=== PATIENT | female | born 1985 | race American Indian/Alaskan Native ===

== ENCOUNTER 2021-01-29 22:03 | Emergency (ER) | payer SELFPAY ==
[2021-01-29 23:55] LABS: Basophils # (Auto) 0.1 K/mm3 (0.0-0.1); Eosinophils # (Auto) 0.1 K/mm3 (0.0-0.4); Eosinophils % (Auto) 1.9 % (0.0-4.3); Hematocrit 38.1 % (30.3-42.9); Hemoglobin 12.8 gm/dl (10.1-14.3); Lymphocytes # (Auto) 2.9 K/mm3 (1.2-5.4); Lymphocytes % (Auto) 37.1 % (13.4-35.0); Mean Corpuscular HGB Conc 34 % (30-34); Mean Corpuscular Volume 91 fl (79-97); Monocytes # (Auto) 0.7 K/mm3 (0.0-0.8); Monocytes % (Auto) 8.8 % (0.0-7.3); Platelet Count 231 K/mm3 (140-440); Red Blood Count 4.18 M/mm3 (3.65-5.03); Red Cell Distribution Width 14.7 % (13.2-15.2)
--- NOTE | 2021-01-30 00:49 | XRay Report ---
CHEST PA AND LATERAL VIEWS INDICATION: chestpain. COMPARISON: None FINDINGS: Support devices: None Heart: Normal Lungs/Pleura: No acute pulmonary or pleural findings. IMPRESSION: 1. No significant abnormality. Signer Name: Lee Hicks MD Signed: 01/30/2021 12:45 AM Workstation Name: [id number]
[2021-01-30 01:01] LABS: Alanine Aminotransferase 16 units/L (7-56); Albumin 4.5 g/dL (3.9-5); Blood Urea Nitrogen 8 mg/dL (7-17); Calcium 8.8 mg/dL (8.4-10.2); Hemolysis Index 3
[2021-01-30 01:12] LABS: BUN/Creatinine Ratio 13
--- NOTE | 2021-01-30 01:50 | Emergency Department Report ---
ED Chest Pain HPI - General Chief Complaint: Chest Pain Stated Complaint: CHEST PAIN PUI?: No Time Seen by Provider: 01/30/21 01:31 Source: patient Mode of arrival: Ambulatory Limitations: No Limitations - History of Present Illness Initial Comments: Chief complaint: "I think this in the muscle." HPI: This is a 35-year-old female with no significant past medical history who presents with chest soreness bilaterally since this morning. Hurts when she moves bends over. Hurts when she laughs coughs. Feels like a sore achiness mostly with movement. She did not take any medication to treat. She feels that when she takes a deep breath her chest chest closing in. She does not take oral contraceptives. She denies leg pain. No family history of clots. No recent travel. She does lift at work. She is currently taking antibiotics and pain medication for dental infection. She has only mild pain with movement. No pain at rest. MD Complaint: chest pain -: Gradual, This morning Onset: during rest Pain Location: left chest, right chest Severity: mild Severity scale (0 -10): 4 Quality: aching Consistency: now resolved Improves With: rest Worsens With: palpation, movement Treatments Prior to Arrival: none - Related Data Previous Rx's Medication Instructions Recorded Last Taken Type Ibuprofen [Motrin 400 MG tab] 400 mg PO TID 5 Days #15 tablet 01/30/21 Unknown Rx Allergies Allergy/AdvReac Type Severity Reaction Status Date / Time No Known Allergies Allergy Unverified 01/29/21 23:09 Heart Score - HEART Score History: Slightly suspicious EKG: Normal Age: < 45 Risk factors: No known risk factors Troponin: < normal limit HEART Score: 0 ED Review of Systems ROS: Stated complaint: CHEST PAIN Other details as noted in HPI Comment: All other systems reviewed and negative Constitutional: denies: fever, malaise Respiratory: denies: cough, shortness of breath Cardiovascular: chest pain Gastrointestinal: denies: abdominal pain, nausea, vomiting ED Past Medical Hx - Past Medical History Previous Medical History?: No - Surgical History Past Surgical History?: Yes Additional Surgical History: . Hernia repair - Social History Smoking Status: Never Smoker Substance Use Type: None - Medications Home Medications: Home Medications Medication Instructions Recorded Confirmed Last Taken Type Ibuprofen [Motrin 400 MG tab] 400 mg PO TID 5 Days #15 tablet 01/30/21 Unknown Rx ED Physical Exam - General Limitations: No Limitations General appearance: alert, in no apparent distress, other (Pleasant appears comfortable no acute distress) - Head Head exam: Present: atraumatic, normocephalic - Eye Eye exam: Present: normal appearance - ENT ENT exam: Present: mucous membranes moist - Neck Neck exam: Present: normal inspection, full ROM - Respiratory Respiratory exam: Present: normal lung sounds bilaterally. Absent: respiratory distress, wheezes, rales, rhonchi - Cardiovascular Cardiovascular Exam: Present: regular rate, normal rhythm, normal heart sounds. Absent: systolic murmur, diastolic murmur, rubs, gallop - GI/Abdominal GI/Abdominal exam: Present: soft, normal bowel sounds. Absent: distended, tenderness, guarding, rebound - Extremities Exam Extremities exam: Present: normal inspection - Neurological Exam Neurological exam: Present: alert, oriented X3 - Psychiatric Psychiatric exam: Present: normal affect, normal mood - Skin Skin exam: Present: warm, dry, intact, normal color. Absent: rash ED Course Vital Signs 01/29/21 23:03 Temperature 98.5 F Pulse Rate 83 Respiratory 18 Rate Blood Pressure 132/91 O2 Sat by Pulse 100 Oximetry ED Medical Decision Making - Lab Data Result diagrams: 01/29/21 23:31 01/29/21 23:31 Laboratory Results - last 24 hr 01/29/21 01/29/21 01/29/21 23:31 23:31 23:31 WBC 7.7 RBC 4.18 Hgb 12.8 Hct 38.1 MCV 91 MCH 31 MCHC 34 RDW 14.7 Plt Count 231 Lymph % (Auto) 37.1 H [place] % (Auto) 8.8 H Eos % (Auto) 1.9 Baso % (Auto) 1.0 Lymph # (Auto) 2.9 [place] # (Auto) 0.7 Eos # (Auto) 0.1 Baso # (Auto) 0.1 Seg Neutrophils % 51.2 Seg Neutrophils # 3.9 Sodium 140 Potassium 3.9 Chloride 104.5 Carbon Dioxide 27 Anion Gap 12 BUN 8 Creatinine 0.6 Estimated GFR > 60 BUN/Creatinine Ratio 13 Glucose 83 Calcium 8.8 Total Bilirubin 0.30 AST 16 ALT 16 Alkaline Phosphatase 53 Total Protein 7.3 Albumin 4.5 Albumin/Globulin Ratio 1.6 HCG, Qual Negative - EKG Data -: EKG Interpreted by Me EKG shows normal: sinus rhythm, axis, intervals, QRS complexes, ST-T waves Rate: normal - EKG Data Interpretation: normal EKG 01/30/21 01:48 EKG obtained 2209 EKG interpreted by me Normal sinus rhythm normal rate normal axis normal intervals no ST elevation no ST-T signs of ischemia normal EKG - Radiology Data Radiology results: report reviewed Chest PA lateral: No significant abnormality - Medical Decision Making Chest wall pain: PERC negative for PE, no indication of ACS. No evidence of infiltrate or pneumothorax. Patient prescribed ibuprofen. First dose given in emergency department. She understands to return to emergency department symptoms worsen. Critical care attestation.: If time is entered above; I have spent that time in minutes in the direct care of this critically ill patient, excluding procedure time. ED Disposition Clinical Impression: Chest wall pain Disposition: DC-01 TO HOME OR SELFCARE Is pt being admited?: No Does the pt Need Aspirin: No Condition: Stable Instructions: Chest Wall Pain, [id number] Prescriptions: Ibuprofen [Motrin 400 MG tab] 400 mg PO TID 5 Days #15 tablet Referrals: PRIMARY CARE, [Primary Care Provider] - 3-5 Days Forms: Work/School Release Form(ED)
[2021-01-30] MEDS ORDERED: IBUPROFEN 800 MG TAB PO ONE (01:53)
[2021-01-30 02:01] VITALS: BP 127/86
--- NOTE | 2021-01-31 11:10 | Electrocardiograph Report ---
[facility] Test Date: 2021-01-29 Test Time: 22:09:34 Pat Name: EBONY KULKARNI Department: Room: Gender: F Appeals Board Referee: JANE : 1985 Requested By: ED DOC Order Number: [id number] Reading MD: Car Del Angel Measurements Intervals [place] Rate: 81 P: 61 NC: 132 QRS: 45 QRSD: 91 T: 29 QT: 362 QTc: 422 Interpretive Statements Sinus rhythm No previous ECG available for comparison Electronically Signed On 01-31-2021 8:10:06 PDT by Car Del Angel
== END 2021-01-30 02:00 | disposition home or self-care (01) ==
LOC: ED 22:03
DX: R07.89 Other chest pain (principal); Z79.899 Other long term (current) drug therapy
CPT/HCPCS: 36415; 71046; 80053; 84703; 85025; 93005

== ENCOUNTER 2021-09-11 17:01 | Emergency (ER) | payer SELFPAY ==
[2021-09-11] MEDS ORDERED: KETOROLAC 30 MG/1 ML INJ IV ONE (17:23)
[2021-09-11] MEDS ORDERED: CYCLOBENZAPRINE 10 MG TAB PO ONE (17:23)
[2021-09-11] MEDS ORDERED: SODIUM CHLORIDE 0.9% 1000 ML 1,000 ML IV ONE (17:23)
--- NOTE | 2021-09-11 17:27 | Emergency Department Report ---
ED Chest Pain HPI - General Chief Complaint: Chest Pain Stated Complaint: CHEST PAIN Time Seen by Provider: 09/11/21 17:15 Source: patient Mode of arrival: Ambulatory Limitations: No Limitations - History of Present Illness Initial Comments: 36-year-old -[place] female presents to the emergency department with a 2-day history of generalized chest pain that has now started to radiate down her right arm and towards her posterior right shoulder since earlier today. The patient took a muscle relaxer last night for her symptoms with only some tr ansient and/or mild relief. She denies any past medical history. She denies any family history of early heart attack. No recent travel or sick contacts at home. She denies any tobacco or illicit drug use. Currently the pain is 8 out of 10 in intensity and worsens with breathing and certain movements of her torso. She is not vaccinated against COVID-19 but does not have any known exposure to anyone positive for COVID-19. - Related Data Previous Rx's Medication Instructions Recorded Last Taken Type Ibuprofen [Motrin 400 MG tab] 400 mg PO TID 5 Days #15 tablet 01/30/21 Unknown Rx Cyclobenzaprine [Flexeril] 10 mg PO TID PRN #12 tablet 09/11/21 Unknown Rx Ibuprofen [Motrin 600 MG tab] 600 mg PO Q8H PRN #20 tablet 09/11/21 Unknown Rx Allergies Allergy/AdvReac Type Severity Reaction Status Date / Time No Known Allergies Allergy Unverified 01/29/21 23:09 Heart Score - HEART Score History: Slightly suspicious EKG: Normal Age: < 45 Risk factors: No known risk factors Troponin: < normal limit HEART Score: 0 - EKG Read Time Time EKG Completed: 17:07 EKG Read Time: 17:16 ED Review of Systems ROS: Stated complaint: CHEST PAIN Other details as noted in HPI Comment: All other systems reviewed and negative Constitutional: denies: chills, fever Eyes: denies: eye pain, vision change ENT: denies: ear pain, throat pain Respiratory: denies: cough, shortness of breath Cardiovascular: chest pain. denies: palpitations Gastrointestinal: denies: abdominal pain, vomiting Genitourinary: denies: dysuria, discharge Musculoskeletal: arthralgia, myalgia Skin: denies: rash, lesions Neurological: denies: headache, weakness ED Past Medical Hx - Past Medical History Previous Medical History?: No - Surgical History Past Surgical History?: Yes Additional Surgical History: . Hernia repair - Social History Smoking Status: Never Smoker Substance Use Type: None - Medications Home Medications: Home Medications Medication Instructions Recorded Confirmed Last Taken Type Ibuprofen [Motrin 400 MG tab] 400 mg PO TID 5 Days #15 tablet 01/30/21 Unknown Rx Cyclobenzaprine [Flexeril] 10 mg PO TID PRN #12 tablet 09/11/21 Unknown Rx Ibuprofen [Motrin 600 MG tab] 600 mg PO Q8H PRN #20 tablet 09/11/21 Unknown Rx ED Physical Exam - General Limitations: No Limitations - Other Other exam information: GENERAL: The patient is well-developed well-nourished. HENT: Normocephalic. Atraumatic. Patient has moist mucous membranes. EYES: Extraocular motions are intact. NECK: Supple. Trachea is midline. CHEST/LUNGS: Clear to auscultation. There is no respiratory distress noted. There is reproducible chest wall tenderness to palpation without crepitus or deformity. HEART/CARDIOVASCULAR: Regular. There is no tachycardia. There is no murmur. ABDOMEN: Abdomen is soft, nontender. Patient has normal bowel sounds. SKIN: Skin is warm and dry. NEURO: The patient is awake, alert, and oriented. The patient is cooperative. The patient has no focal neurologic deficits. Normal speech. MUSCULOSKELETAL: There is no tenderness or deformity. There is no limitation range of motion. ED Course Vital Signs 09/11/21 09/11/21 09/11/21 17:14 17:45 19:55 Temperature 98.4 F Pulse Rate 75 76 Respiratory 16 16 18 Rate Blood Pressure 129/74 Blood Pressure 124/82 [Left] O2 Sat by Pulse 100 99 Oximetry RICK score - Rick Score Age > 65: (0) No Aspirin use within the Past 7 Days: (0) No 3 or more CAD Risk Factors: (0) No 2 or more Angina events in past 24 hrs: (1) Yes Known CAD with more than 50% Stenosis: (0) No Elevated Cardiac Markers: (0) No ST Deviation Greater than 0.5mm: (0) No RICK Score: 1 ED Medical Decision Making - Lab Data Result diagrams: 09/11/21 17:39 09/11/21 17:39 Lab Results 09/11/21 09/11/21 Range/Units 17:39 17:39 WBC 8.0 (4.5-11.0) K/mm3 RBC 4.34 (3.65-5.03) M/mm3 Hgb 13.1 (10.1-14.3) gm/dl Hct 39.7 (30.3-42.9) % MCV 91 (79-97) fl MCH 30 (28-32) pg MCHC 33 (30-34) % RDW 16.7 H (13.2-15.2) % Plt Count 266 (140-440) K/mm3 Lymph % (Auto) 26.7 (13.4-35.0) % [place] % (Auto) 6.9 (0.0-7.3) % Eos % (Auto) 1.3 (0.0-4.3) % Baso % (Auto) 2.0 H (0.0-1.8) % Lymph # (Auto) 2.1 (1.2-5.4) K/mm3 [place] # (Auto) 0.6 (0.0-0.8) K/mm3 Eos # (Auto) 0.1 (0.0-0.4) K/mm3 Baso # (Auto) 0.2 H (0.0-0.1) K/mm3 Seg Neutrophils % 63.1 (40.0-70.0) % Seg Neutrophils # 5.1 (1.8-7.7) K/mm3 Sodium 137 (137-145) mmol/L Potassium 5.9 H (3.6-5.0) mmol/L Chloride 103.5 (98-107) mmol/L Carbon Dioxide 23 (22-30) mmol/L Anion Gap 16 mmol/L BUN 12 (7-17) mg/dL Creatinine 0.6 (0.6-1.2) mg/dL Estimated GFR > 60 ml/min BUN/Creatinine Ratio 20 % Glucose 70 (65-100) mg/dL Calcium 9.0 (8.4-10.2) mg/dL Troponin T < 0.010 (0.00-0.029) ng/mL - EKG Data -: EKG Interpreted by Ri EKG shows normal: sinus rhythm, axis, intervals, QRS complexes, ST-T waves Rate: normal - EKG Data When compared to previous EKG there are: previous EKG unavailable Interpretation: normal EKG - Radiology Data Radiology results: image reviewed interpreted by me: Chest x-ray does not show any acute process. There are no pleural effusions, obvious pneumonia and there is no pneumothorax. No widened mediastinum. - Medical Decision Making This patient presents with a 2-day history of generalized chest discomfort that has recently started to radiate down her right arm and to the posterior right shoulder. On examination there is reproducible chest wall tenderness to palpation without crepitus or deformity. Heart and lung sounds are normal to auscultation and the patient does not appear in any respiratory or acute distress. EKG does not have any morphology consistent with ST elevation myocardial infarction or any dysrhythmia. Chest x-ray does not show any pneumonia, pleural effusions, pneumothorax, widened mediastinum, or any other acute process. Patient's labs have been unremarkable including CBC, metabolic panel except for hyperkalemia and a negative troponin. Patient was given a dose of Kayexalate and albuterol to treat the hyperkalemia with potassium level of 5.9. She understands the importance of following up with her primary care physician in the next few days for a repeat potassium level. She will receive information about potassium rich foods that she knows which to avoid. She was given a dose of Toradol and Flexeril for her chest wall pain with some improvement. She is low on the heart and RICK score. For all these reasons she appears safe for discharge home at this time. Her contact information has been sent over to the [facility], and someone from their office should be contacting her shortly for close outpatient follow-up as part of this [facility] low risk chest pain protocol. Critical Care Time: No Critical care attestation.: If time is entered above; I have spent that time in minutes in the direct care of this critically ill patient, excluding procedure time. ED Disposition Clinical Impression: Atypical chest pain, Chest wall pain, Hyperkalemia Disposition: 01 HOME / SELF CARE / HOMELESS Is pt being admited?: No Condition: Stable Instructions: Nonspecific Chest Pain, Adult, Hyperkalemia, Potassium Content of Foods, Chest Wall Pain Additional Instructions: Please follow-up with your primary care physician in the next 1 to 2 days for a repeat potassium level. Your potassium level today was at 5.9. You were given Kayexalate and some albuterol in order to decrease your potassium level. I have given you some information about potassium rich foods so you can avoid them for at least a few days. I have sent your contact information over to the [facility], and someone from their office should be contacting you shortly for close outpatient follow-up. Just in case, I am giving you a referral for one of their senior mechanical estimator, Dr. Jenkins. You have been prescribed a medication that is sedating and therefore should not be taken prior to driving, working, and responsible for children and in no way should be mixed with alcohol of any quantity. Return to the emergency department with any worsening of your symptoms, new or c oncerning symptoms not addressed during this current emergency department visit, or with any acute distress. Prescriptions: Cyclobenzaprine [Flexeril] 10 mg PO TID PRN #12 tablet PRN Reason: Muscle Spasm Ibuprofen [Motrin 600 MG tab] 600 mg PO Q8H PRN #20 tablet PRN Reason: Pain Referrals: PRIMARY CAREMD [Primary Care Provider] - 2-3 Days KALPANA JENKINS MD [Staff Physician] - 3-5 Days Time of Disposition: 19:47
[2021-09-11 18:08] LABS: Basophils # (Auto) 0.2 K/mm3 (0.0-0.1); Eosinophils # (Auto) 0.1 K/mm3 (0.0-0.4); Eosinophils % (Auto) 1.3 % (0.0-4.3); Hematocrit 39.7 % (30.3-42.9); Hemoglobin 13.1 gm/dl (10.1-14.3); Lymphocytes # (Auto) 2.1 K/mm3 (1.2-5.4); Lymphocytes % (Auto) 26.7 % (13.4-35.0); Mean Corpuscular HGB Conc 33 % (30-34); Mean Corpuscular Volume 91 fl (79-97); Monocytes # (Auto) 0.6 K/mm3 (0.0-0.8); Monocytes % (Auto) 6.9 % (0.0-7.3); Platelet Count 266 K/mm3 (140-440); Red Blood Count 4.34 M/mm3 (3.65-5.03); Red Cell Distribution Width 16.7 % (13.2-15.2)
[2021-09-11 18:26] LABS: Blood Urea Nitrogen 12 mg/dL (7-17); Hemolysis Index 236
--- NOTE | 2021-09-11 18:28 | XRay Report ---
CHEST 2 VIEWS INDICATION / CLINICAL INFORMATION: CP. COMPARISON: 01/30/2021 FINDINGS: SUPPORT DEVICES: None. HEART / MEDIASTINUM: No significant abnormality. LUNGS / PLEURA: No significant pulmonary or pleural abnormality. No pneumothorax. ADDITIONAL FINDINGS: No significant additional findings. IMPRESSION: 1. No acute findings. Signer Name: Forrest Wade DO Signed: 09/11/2021 6:24 PM Workstation Name: [id number]
[2021-09-11 18:29] LABS: BUN/Creatinine Ratio 20
[2021-09-11] MEDS ORDERED: SODIUM POLYSTYRENE 15 GM/60 ML ORAL LIQD PO ONE (18:35)
[2021-09-11] MEDS ORDERED: ALBUTEROL 2.5 MG/3 ML NEBU IH ONE (18:58)
[2021-09-11 19:57] VITALS: BP 124/82
--- NOTE | 2021-09-15 10:03 | Electrocardiograph Report ---
[facility] Test Date: 2021-09-11 Test Time: 17:07:14 Pat Name: EBONY KULKARNI Department: Room: Gender: F Dental Professional: ROSA CARRENOB: 1985 Requested By: NICOLE COLON Order Number: [id number] Reading MD: Bryan Quintana Measurements Intervals [place] Rate: 71 P: 69 [place]: 107 QRS: 50 QRSD: 86 T: 38 QT: 364 QTc: 396 Interpretive Statements Sinus rhythm with borderline short [place] interval noted. Compared to ECG 01/29/2021 22:09:34 No significant changes Electronically Signed On 09-15-2021 10:03:21 EST by Bryan Quintana
== END 2021-09-11 19:59 | disposition home or self-care (01) ==
LOC: ED 17:01
DX: R07.89 Other chest pain (principal); E87.6 Hypokalemia; Z98.890 Other specified postprocedural states; Z79.899 Other long term (current) drug therapy
CPT/HCPCS: 36415; 71046; 80048; 84484; 85025; 93005; 94640; 96361; 96374; 99284; J1885; J7030

== ENCOUNTER 2022-01-20 09:20 | Emergency (ER) | payer MEDICAID ==
[2022-01-20 09:28] VITALS: BP 131/85
[2022-01-20] MEDS ORDERED: oxyCODONE /ACETAMINOPHEN 5-325MG TAB PO ONE (10:22)
--- NOTE | 2022-01-20 10:59 | XRay Report ---
RIGHT WRIST 4 VIEWS INDICATION / CLINICAL INFORMATION: Right wrist pain after injury COMPARISON: None available. FINDINGS: BONES / JOINT(S): No acute fracture or subluxation. No significant arthritis. SOFT TISSUES: No significant abnormality. ADDITIONAL FINDINGS: None. IMPRESSION: No acute findings. Signer Name: Xiang Hodges MD Signed: 01/20/2022 10:54 AM Workstation Name: [employer]
--- NOTE | 2022-01-20 11:07 | Emergency Department Report ---
Upper Extremity - HPI Chief Complaint: Extremity Injury, Upper Stated Complaint: RT WRIST HAND PAIN Time Seen by Provider: 01/20/22 10:01 Upper Extremity: Right Wrist, Right Hand Occurred When: 3 Days Mechanism: Other (Wrestling with kids) Severity: severe Symptoms: Yes Pain with Movement, Yes Limited Range of Movement, Yes Swelling, No Deformity, No Numbness, No Weakness, No Bruising/Ecchymosis, No Laceration or Abrasion Other History: 36-year-old black female with past medical history of migraines presents to the emergency department for evaluation of right wrist and hand pain that she injured while wrestling with her kids 3 days ago. She states that since then she has had persistent pain, decreased range of motion, and some swelling to the area. She denies any numbness or tingling. ED Review of Systems ROS: Stated complaint: RT WRIST HAND PAIN Other details as noted in HPI Comment: All other systems reviewed and negative Constitutional: denies: chills, fever Eyes: denies: eye pain, eye discharge ENT: denies: ear pain, throat pain, dental pain, congestion Respiratory: denies: cough, orthopnea, shortness of breath, SOB with exertion, S OB at rest Cardiovascular: denies: chest pain, palpitations, dyspnea on exertion, orthopnea, edema, syncope, paroxysmal nocturnal dyspnea Endocrine: no symptoms reported Gastrointestinal: denies: abdominal pain, nausea, vomiting, diarrhea, hematemesis, melena, hematochezia Genitourinary: denies: urgency, dysuria, frequency, hematuria, discharge Musculoskeletal: denies: back pain Skin: denies: rash, lesions Neurological: denies: headache, weakness, numbness, paresthesias Psychiatric: denies: anxiety, depression Hematological/Lymphatic: denies: easy bleeding, easy bruising ED Past Medical Hx - Surgical History Additional Surgical History: . Hernia repair - Social History Smoking Status: Never Smoker Substance Use Type: None - Medications Home Medications: Home Medications Medication Instructions Recorded Confirmed Last Taken Type Ibuprofen [Motrin 400 MG tab] 400 mg PO TID 5 Days #15 tablet 01/30/21 Unknown Rx Cyclobenzaprine [Flexeril] 10 mg PO TID PRN #12 tablet 09/11/21 Unknown Rx Ibuprofen [Motrin 600 MG tab] 600 mg PO Q8H PRN #20 tablet 09/11/21 Unknown Rx Naproxen [Naprosyn] 500 mg PO BID #14 tab 01/20/22 Unknown Rx Upper Extremity Exam - Exam General: Vital signs noted. No distress. Alert and acting appropriately. Head and Torso: Yes HEENT Abnormality, No Neck Tenderness, No Chest/Lungs Abnormality, No Abdominal Tenderness, No Back Tenderness Shoulder Exam: No Shoulder Tenderness, No Clavicle Tenderness, No Normal Range of Motion in Shoulder, No Shoulder Deformity, No AC Joint Tenderness Arm Exam: No Arm/Humerus Tenderness, No Arm Deformity Elbow: Yes Normal Range of Motion in Elbow, No Elbow Tenderness, No Elbow Deformity Forearm: No Forearm Tenderness, No Forearm Deformity, No Pain with Pronation, No Pain with Supination Wrist: Yes Wrist Tenderness (Right wrist), No Normal ROM in Wrist, No Wrist Deformity, No Snuffbox Tenderness, No Pain with Axial Thumb Compression Hand: Yes Hand Tenderness, Yes Normal ROM in Digit(s), No Hand Deformity, No Digit Tenderness, No Digit(s) Deformity, No Tendon Dysfunction CMS Exam: Yes Normal Distal Pulses, Yes Normal Capillary Refill, Yes Normal Distal Sensation, No Broken Skin ED Course Vital Signs 01/20/22 09:27 Temperature 98.4 F Pulse Rate 73 Respiratory 17 Rate Blood Pressure 131/85 O2 Sat by Pulse 100 Oximetry ED Medical Decision Making - Radiology Data Radiology results: report reviewed, image reviewed Right wrist x-ray IMPRESSION: No acute findings. - Medical Decision Making 36-year-old black female with past medical history of migraines presents to the emergency department for evaluation of right wrist and hand pain that she injured while wrestling with her kids 3 days ago. She states that since then she has had persistent pain, decreased range of motion, and some swelling to the area. She denies any numbness or tingling. Right wrist x-ray without any acute abnormalities noted. Patient will be treated with Des wrap, rest, ice, and 1 week of anti-inflammatories. She was advised that if she has no improvement or worsening symptoms to follow-up here or with orthopedics for repeat x-ray. She verbalized understanding of and agreement with plan of care. Critical care attestation.: If time is entered above; I have spent that time in minutes in the direct care of this critically ill patient, excluding procedure time. ED Disposition Clinical Impression: Wrist pain, right Disposition: 01 HOME / SELF CARE / HOMELESS Is pt being admited?: No Does the pt Need Aspirin: No Condition: Stable Instructions: How to Use Cold Therapy, [id number], Musculoskeletal Pain, Wrist Pain, Adult, [id number] Additional Instructions: Take medications as prescribed. Follow-up with primary care provider as needed. Prescriptions: Naproxen [Naprosyn] 500 mg PO BID #14 tab Referrals: MAIKOL ATKINS MD [Staff Physician] - 3-5 Days Forms: Work/School Release Form(ED)
== END 2022-01-20 11:55 | disposition home or self-care (01) ==
LOC: ED 09:20
DX: M25.531 Pain in right wrist (principal)
CPT/HCPCS: 99283

== ENCOUNTER 2022-01-29 16:51 | Emergency (ER) | payer MEDICAID ==
[2022-01-29 17:21] VITALS: BP 145/85
[2022-01-29 18:23] LABS: Basophils # (Auto) 0.1 K/mm3 (0.0-0.1); Basophils % (Auto) 0.8 % (0.0-1.8); Eosinophils # (Auto) 0.2 K/mm3 (0.0-0.4); Eosinophils % (Auto) 2.8 % (0.0-4.3); Hematocrit 39.8 % (30.3-42.9); Lymphocytes # (Auto) 2.4 K/mm3 (1.2-5.4); Lymphocytes % (Auto) 28.9 % (13.4-35.0); Mean Corpuscular HGB Conc 33 % (30-34); Mean Corpuscular Volume 93 fl (79-97); Monocytes # (Auto) 0.7 K/mm3 (0.0-0.8); Monocytes % (Auto) 8.5 % (0.0-7.3); Platelet Count 224 K/mm3 (140-440); Red Blood Count 4.27 M/mm3 (3.65-5.03); Red Cell Distribution Width 14.1 % (13.2-15.2)
[2022-01-29 18:39] LABS: Alanine Aminotransferase 18 units/L (7-56); Albumin 4.3 g/dL (3.9-5); BUN/Creatinine Ratio 15; Blood Urea Nitrogen 9 mg/dL (7-17); Calcium 9.6 mg/dL (8.4-10.2); Hemolysis Index 7
[2022-01-29 19:00] LABS: Bilirubin,Urine NEG (Negative); Blood,Urine NEG (Negative); Color,Urine Straw (Yellow); Mucus,Urine FEW /HPF; Protein,Urine <15 mg/dL mg/dL (Negative); RBC,Urine < 1.0 /HPF (0.0-6.0); Urobilinogen,Urine < 2.0 mg/dL (<2.0)
--- NOTE | 2022-01-29 19:03 | Emergency Department Report ---
ED Abdominal Pain HPI - General Chief Complaint: Abdominal Pain Stated Complaint: LOWER RT ABD PAIN PUI?: No Time Seen by Provider: 01/29/22 18:51 Source: patient Mode of arrival: Ambulatory Limitations: No Limitations - History of Present Illness Initial Comments: Chief complaint: Abdominal pain HPI: This is a healthy 36-year-old female without significant past medical history presents with right lower quadrant severe abdominal pain. 8 out of 10 dull pain worse with movement denies nausea vomiting denies vaginal discharge positive frequent urination. No diarrhea. No fever. History of tubal ligation. MD Complaint: abdominal pain -: Gradual, days(s) (3 days) Location: RLQ Radiation: none Severity: severe Severity scale (0 -10): 8 Quality: aching, dull Consistency: constant Improves With: nothing Worsens With: movement Associated Symptoms: other (Frequent urination) - Related Data Previous Rx's Medication Instructions Recorded Last Taken Type Ibuprofen [Motrin 400 MG tab] 400 mg PO TID 5 Days #15 tablet 01/30/21 Unknown Rx Cyclobenzaprine [Flexeril] 10 mg PO TID PRN #12 tablet 09/11/21 Unknown Rx Ibuprofen [Motrin 600 MG tab] 600 mg PO Q8H PRN #20 tablet 09/11/21 Unknown Rx Naproxen [Naprosyn] 500 mg PO BID #14 tab 01/20/22 Unknown Rx HYDROcodone/APAP 5-325 [[place] 1 each PO Q6HR PRN #10 tablet 01/29/22 Unknown Rx 5/325] Ibuprofen [Motrin 800 MG tab] 800 mg PO Q8HR PRN #15 tablet 01/29/22 Unknown Rx Allergies Allergy/AdvReac Type Severity Reaction Status Date / Time No Known Allergies Allergy Unverified 01/29/21 23:09 ED Review of Systems ROS: Stated complaint: LOWER RT ABD PAIN Other details as noted in HPI Comment: All other systems reviewed and negative Constitutional: denies: chills, fever, malaise Respiratory: denies: cough, orthopnea, shortness of breath Cardiovascular: denies: chest pain Gastrointestinal: abdominal pain. denies: nausea, vomiting Genitourinary: frequency Musculoskeletal: denies: back pain ED Past Medical Hx - Past Medical History Previous Medical History?: No - Surgical History Past Surgical History?: Yes Additional Surgical History: . Hernia repair. Tubal ligation - Social History Smoking Status: Never Smoker Substance Use Type: Prescribed - Medications Home Medications: Home Medications Medication Instructions Recorded Confirmed Last Taken Type Ibuprofen [Motrin 400 MG tab] 400 mg PO TID 5 Days #15 tablet 01/30/21 Unknown Rx Cyclobenzaprine [Flexeril] 10 mg PO TID PRN #12 tablet 09/11/21 Unknown Rx Ibuprofen [Motrin 600 MG tab] 600 mg PO Q8H PRN #20 tablet 09/11/21 Unknown Rx Naproxen [Naprosyn] 500 mg PO BID #14 tab 01/20/22 Unknown Rx HYDROcodone/APAP 5-325 [[place] 1 each PO Q6HR PRN #10 tablet 01/29/22 Unknown Rx 5/325] Ibuprofen [Motrin 800 MG tab] 800 mg PO Q8HR PRN #15 tablet 01/29/22 Unknown Rx ED Physical Exam - General Limitations: No Limitations General appearance: alert, in no apparent distress - Head Head exam: Present: atraumatic, normocephalic - Eye Eye exam: Present: normal appearance - ENT ENT exam: Present: mucous membranes moist - Neck Neck exam: Present: normal inspection, full ROM - Respiratory Respiratory exam: Present: normal lung sounds bilaterally. Absent: respiratory distress, wheezes, rales, rhonchi - Cardiovascular Cardiovascular Exam: Present: regular rate, normal rhythm, normal heart sounds. Absent: systolic murmur, diastolic murmur, rubs, gallop - GI/Abdominal GI/Abdominal exam: Present: soft, tenderness, guarding, normal bowel sounds. Absent: distended, rebound - Extremities Exam Extremities exam: Present: normal inspection - Back Exam Back exam: Present: normal inspection - Neurological Exam Neurological exam: Present: alert, oriented X3 - Psychiatric Psychiatric exam: Present: normal affect, normal mood - Skin Skin exam: Present: warm, dry, intact, normal color. Absent: rash ED Course Vital Signs 01/29/22 17:16 Temperature 98.9 F Pulse Rate 76 Respiratory 20 Rate Blood Pressure 145/85 O2 Sat by Pulse 100 Oximetry ED Medical Decision Making - Lab Data Result diagrams: 01/29/22 17:53 01/29/22 17:53 - Radiology Data Radiology results: report reviewed Patient Name: EBONY KULKARNI Gender: Female Date of : 1985 Referring Provider: AMAYA FRAIRE Organization: [facility] Accession Number: [id number] Requested Date: January 29, 2022 19:00 Report Status: Final Requested Procedure: 1 Procedure Description: CT abdomen pelvis w con Modality: CT Findings Reporting MD: John Michaels Dictation Time: January 29, 2022 19:25 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 COMPARISON: None. TECHNIQUE: CT images of the abdomen and pelvis were obtained following administration of intravenous contrast. All CT scans at this location are performed using CT dose reduction for ALARA by means of automated exposure control. CONTRAST: 100 ml of intravenous contrast administered. FINDINGS: Lungs/bones: Lung bases are clear Abdomen/pelvis: Fatty infiltration the liver. Spleen, adrenal glands, pancreas, gallbladder and upper GI tract appear normal. Bilateral kidneys appear normal. The appendix appears normal. There is a large right adnex al cyst measuring 5.2 x 3.6 cm. Free fluid is seen in the pelvis. Fluid in the endometrium. No acute bone findings IMPRESSION: 1. Large right adnexal cyst measures 5.2 x 3.6 cm. Follow-up recommended. 2. Trace free fluid in the pelvis. 3. Appendix appears normal. Signer Name: John Michaels MD Signed: 01/29/2022 7:25 PM Workstation Name: [id number] - Medical Decision Making Right ovarian cyst normal appendix, CBC was normal chemistry normal imaging analysis without evidence of infection. Prescribed ibuprofen [place] for pain. Referred to [facility] on-call Critical care attestation.: If time is entered above; I have spent that time in minutes in the direct care of this critically ill patient, excluding procedure time. ED Disposition Clinical Impression: Right ovarian cyst Disposition: HOME / SELF CARE / HOMELESS Is pt being admited?: No Does the pt Need Aspirin: No Condition: Stable Instructions: Abdominal Pain (ED), Ovarian Cyst, [id number] Prescriptions: Ibuprofen [Motrin 800 MG tab] 800 mg PO Q8HR PRN #15 tablet PRN Reason: Pain , Severe (7-10) HYDROcodone/APAP 5-325 [[place] 5/325] 1 each PO Q6HR PRN #10 tablet PRN Reason: Pain Referrals: [facility]INE,[facility] [Other] - 3-5 Days [facility] [Provider Group] - 3-5 Days
--- NOTE | 2022-01-29 20:29 | Cat Scan Report ---
CT ABDOMEN AND PELVIS WITH CONTRAST HISTORY: RLQ pain hx of tubal ligation. COMPARISON: None. TECHNIQUE: CT images of the abdomen and pelvis were obtained following administration of intravenous contrast. All CT scans at this location are performed using CT dose reduction for ALARA by means of automated exposure control. CONTRAST: 100 ml of intravenous contrast administered. FINDINGS: Lungs/bones: Lung bases are clear Abdomen/pelvis: Fatty infiltration the liver. Spleen, adrenal glands, pancreas, gallbladder and uppe r GI tract appear normal. Bilateral kidneys appear normal. The appendix appears normal. There is a la rge right adnexal cyst measuring 5.2 x 3.6 cm. Free fluid is seen in the pelvis. Fluid in the endomet rium. No acute bone findings IMPRESSION: 1. Large right adnexal cyst measures 5.2 x 3.6 cm. Follow-up recommended. 2. Trace free fluid in the pelvis. 3. Appendix appears normal. Signer Name: John Michaels MD Signed: 01/29/2022 8:25 PM Workstation Name: [id number]
== END 2022-01-29 21:10 | disposition home or self-care (01) ==
LOC: ED 16:51
DX: N83.291 Other ovarian cyst, right side (principal)
CPT/HCPCS: 36415; 74177; 80053; 81001; 85025; 99284; Q9967